=== PATIENT | female | born 1965 | race African-American/Black ===

== ENCOUNTER 2017-03-05 05:24 | Day surgery (SDC) | payer BC ==
[2017-03-04 11:29] VITALS: BMI 35.4
[2017-03-05] MEDS ORDERED: MIDAZOLAM HCL 2 MG/2 ML SINGLE DOSE VIAL ONE (13:10)
[2017-03-05] MEDS ORDERED: PROPOFOL 20 ML ONE (13:17)
[2017-03-05] MEDS ORDERED: KETOROLAC TROMETHAMINE 30 MG/1 ML VIAL ONE (13:37)
[2017-03-05] MEDS ORDERED: ACETAMINOPHEN 500 MG TABLET (FP) PO PRN (13:54)
[2017-03-05] MEDS ORDERED: ACETAMINOPHEN 1000 MG/100 ML VIAL (NON FORMULARY) IVPB PRN (13:54)
[2017-03-05] MEDS ORDERED: ONDANSETRON 4 MG/2 ML VIAL IVPUSH PRN (13:54)
[2017-03-05] MEDS ORDERED: oxyCODONE HCL 5 MG TABLET PO PRN (13:54)
[2017-03-05] MEDS ORDERED: LACTATED RINGERS SOLUTION 1,000 ML IV SCH (14:00)
[2017-03-05] MEDS ORDERED: IBUPROFEN 800 MG/8 ML IJ IVPB PRN (14:06)
[2017-03-05] MEDS ORDERED: ONDANSETRON 4 MG/2 ML VIAL IVPB PRN (14:06)
[2017-03-05] MEDS ORDERED: IBUPROFEN 600 MG TABLET (FP) PO PRN (14:06)
--- NOTE | 2017-03-05 14:06 | HP ---
History & Physical Update - History History: No Change - Physical Physical: No Change - Assessment Assessment: No Change - Plan Plan: No Change (Consent signed and witnessed All questions answered)
--- NOTE | 2017-03-05 14:06 | OP ---
Operative Note - Note: Operative Date: 03/05/17 Pre-Operative Diagnosis: 51 yo P2 with PostMenopausal bleeding, morbid obesity Operation: Hysteroscopy, Dialation, Curettage Findings: Atrophic endometrium, bilateral tubal ostia visualized Stage 2 fibroids, small, protrusion into the cavity Post-Operative Diagnosis: Same as Pre-op Surgeon: Sara Nettles Anesthesiologist/GEMOLOGIST: Shirley Pat Anesthesia: MAC Specimens Removed: 1. Endometrial curettings Estimated Blood Loss (mls): 0 Fluid Volume Replaced (mls): 400 Operative Report Dictated: Yes
[2017-03-05 14:13] VITALS: TEMP 98.2
[2017-03-05] MEDS ORDERED: ELECTROLYTE-148 SOLN 1,000 ML IV SCH (14:15)
[2017-03-05 15:05] VITALS: PULSE 64
[2017-03-05 15:55] VITALS: BP 175/64
--- NOTE | 2017-03-06 12:17 | OP ---
DATE OF OPERATION: 03/05/2017 PREOPERATIVE DIAGNOSIS: A 51-year-old para 2 with postmenopausal bleeding, morbid obesity. PREOPERATIVE DIAGNOSIS: A 51-year-old para 2 with postmenopausal bleeding, morbid obesity. OPERATION: Hysteroscopy, dilation and curettage. FINDINGS: Atrophic endometrium, bilateral tubal ostia visualized, stage 2 fibroids, small protrusion into the cavity. SURGEON: Sara Nettles MD ANESTHESIOLOGIST: Shirley Pat MD ANESTHESIA: MAC. SPECIMENS REMOVED: Endometrial curettings. DESCRIPTION OF THE OPERATIVE PROCEDURE: After assuring informed consent and witnessing it, patient was brought to the operating room where she was identified via wrist band, and time-out was called. After assurance of appropriate anesthesia, perineum was prepped and draped in the sterile fashion. Marley tenaculum was placed into the vagina and anterior and posterior fornix, and cervical anterior lip was articulated with single-tooth tenaculum. The cervix was dilated gradually with Forrest dilators to accommodate 3-mm scope. The uterine contents were visualized. Atrophic endometrium was identified. No polyps. Stage 2 fibroids were identified, small in size, with minimal protrusion into the endometrial cavity. Sharp curettage was achieved with No. 1 serrated curette. The instruments were subsequently removed from the vagina. Excellent hemostasis was noted. Patient was placed back into the supine position. The estimated blood loss was 0 mL. Patient received 400 mL of IV fluids, and patients bladder was not drained during the procedure since she urinated right before the procedure. Otilia [id number]
--- NOTE | 2017-03-07 14:42 | PATH ---
Surgical Pathology Report Patient Name: SHANE STEWARD [facility]. Rec. #: [id number] /Age/Gender: 1965 (Age: 51) / F Account: [id number] Location: [facility] SURGICAL Taken: 03/05/2017 Received: 03/06/2017 Reported: 03/07/2017 Physicians: Sara Nettles M.D. Specimen(s) Received ENDOMETRIAL CURETTINGS Clinical History Postmenopausal bleeding Final Diagnosis ENDOMETRIUM, CURETTAGE: FRAGMENTS OF INACTIVE ENDOMETRIUM. FRAGMENTS OF BENIGN ENDOCERVICAL TISSUE WITH FOCAL SQUAMOUS METAPLASIA. FRAGMENTS OF BENIGN SQUAMOUS EPITHELIUM. Electronically Signed Shaw Roman M.D. Gross Description Received in formalin labeled "endometrial curetting" is a 2.3 x 1.8 x 0.3 cm aggregate of grimes-brown soft tissue fragments admixed with blood clot. The formalin is filtered and the specimen is entirely submitted in one cassette. /03/06/2017 saudi/03/06/2017
== END 2017-03-05 15:55 | disposition home or self-care (01) ==
LOC: JASU-SURG 05:24
PROVIDERS: ATTEND Obstetrics & Gynecology
PROC: 0UDB8ZX Extraction of Endometrium, Via Natural or Artificial Opening Endoscopic, Diagnostic (ICD-10-PCS; principal; 2017-03-05 12:00)
DX: N95.0 Postmenopausal bleeding (principal); D25.9 Leiomyoma of uterus, unspecified; E66.01 Morbid (severe) obesity due to excess calories
CPT/HCPCS: 84703; 87086; 88305-TC; 94760